=== PATIENT | female | born 1945 | race Caucasian/White ===

== ENCOUNTER 2017-09-21 01:14 | Inpatient (IN) | payer MEDICARE, OTHER ==
[~2017-09-21] VITALS: Ht 167.6 cm; Wt 119.0 kg
[2017-09-21] MEDS ORDERED: RAPID SEQUENCE KIT [RSI] 1 EACH KIT ONE ×2 (01:21)
[2017-09-21] MEDS ORDERED: SUCCINYLCHOLINE CHLORIDE 20 MG/ML 10 ML VIAL ONE (01:22)
[2017-09-21] MEDS ORDERED: LORazepam 2 MG/ML VIAL ONE (01:34)
[2017-09-21] MEDS ORDERED: SODIUM CHLORIDE 0.9% 1,000 ML IV ONE (01:45)
[2017-09-21] MEDS ORDERED: LORazepam 2 MG/ML VIAL IVP ONE ×3 (01:45→04:30)
[2017-09-21] MEDS ORDERED: FOSPHENYTOIN SODIUM 1,000 MGPE in SODIUM CHLORIDE 0.9% 100 ML IV ONE (02:00)
[2017-09-21 02:04] LABS: EOSINOPHILS # (AUTO) 0.01 K/uL (0.00-0.70); EOSINOPHILS % (AUTO) 0.08 % (1.0-6.0); HEMATOCRIT 38.7 % (36-46); HEMOGLOBIN 12.1 g/dL (12.0-16.0); LYMPHOCYTES # (AUTO) 0.8 K/uL (1.0-4.8); LYMPHOCYTES % (AUTO) 7.4 % (22.0-44.0); MEAN CORPUSCULAR HEMOGLOBIN 26.7 pg (26.0-34.0); MEAN CORPUSCULAR HGB CONC 31.4 G/dL (31.0-37.0); MEAN CORPUSCULAR VOLUME 85 fL (80-100); MONOCYTES # (AUTO) 0.1 K/uL (0.1-1.0); MONOCYTES % (AUTO) 0.8 % (2.0-9.0); NEUTROPHILS # (AUTO) 9.8 K/uL (1.8-7.7); PLATELET COUNT (AUTO) 325 K/uL (150-450); RED BLOOD CELL COUNT(AUTO) 4.54 MIL/uL (4.00-5.20); RED CELL DISTRIBUTION WIDTH 19.6 % (11.5-14.5); WHITE BLOOD COUNT (AUTO) 10.7 K/uL (4.5-11.0)
[2017-09-21 02:05] LABS: NEUTROPHILS % (AUTO) 91.7 % (40.0-70.0)
[2017-09-21 02:11] LABS: ANION GAP 13 mmol/L (8-16); CALCIUM, TOTAL 9.1 mg/dL (8.8-10.5); CARBON DIOXIDE 24 mmol/L (22-29); CHLORIDE 100 mmol/L (98-107); CREATININE 1.56 mg/dL (0.60-1.30); GLOMERULAR FILTR. RATE CALC 33 mL/min (>60); POTASSIUM 4.2 mmol/L (3.5-5.1); SODIUM SERUM 137 mmol/L (136-145); UREA NITROGEN, BLOOD 19 mg/dL (7-18)
[2017-09-21] MEDS ORDERED: DABI110C PO (02:14)
[2017-09-21] MEDS ORDERED: LISI-661 PO (02:14)
[2017-09-21] MEDS ORDERED: ACETAMINOPHEN 650 MG RECTAL SUPPOSITORY PR ONE ×2 (02:15)
[2017-09-21] MEDS ORDERED: FURO40TA5 PO (02:15)
[2017-09-21] MEDS ORDERED: METO-558 PO (02:16)
[2017-09-21] MEDS ORDERED: OMEP10CA41 PO (02:17)
[2017-09-21 02:18] LABS: AMMONIA 11 umol/L (11-32); TROPONIN I < 0.02 ng/mL (0.00-0.05)
[2017-09-21] MEDS ORDERED: SIMV-260 PO (02:18)
[2017-09-21 02:20] LABS: LACTIC ACID 6.4 mmol/L (0.4-2.0)
[2017-09-21] MEDS ORDERED: ROPI2 PO ×2 (02:21→02:24)
[2017-09-21] MEDS ORDERED: TIOT185 IH (02:24)
[2017-09-21 02:25] LABS: ALANINE AMINOTRANSFERASE 18 U/L (12-78); ALBUMIN 2.7 g/dL (3.4-5.0); ASPARTATE AMINOTRANSFERASE 28 U/L (15-37); BILIRUBIN,TOTAL 0.3 mg/dL (0.1-1.0); TOTAL PROTEIN, SERUM 7.4 g/dL (6.4-8.2)
[2017-09-21] MEDS ORDERED: DULO30CA2 PO (02:25)
[2017-09-21] MEDS ORDERED: SACC250C3 PO (02:26)
[2017-09-21 02:27] LABS: ACETAMINOPHEN < 2 mcg/mL (10-30)
[2017-09-21 02:40] LABS: APPEARANCE,URINE CLEAR (CLEAR); GLUCOSE, URINE (UA) NEGATIVE (NEGATIVE); KETONES,URINE NEGATIVE (NEGATIVE); LEUKOCYTE ESTERASE ,URINE NEGATIVE (NEGATIVE); OCCULT BLOOD,URINE TRACE (NEGATIVE); PROTEIN,URINE NEGATIVE (NEGATIVE)
[2017-09-21 02:49] LABS: SALICYLATE < 2.8 mg/dL (2.8-20.0)
[2017-09-21 02:53] LABS: CALCIUM OXALATE CRYSTALS,UR Rare /LPF (None Seen); WBC,URINE 0-2 /HPF (0-5)
[2017-09-21] MEDS ORDERED: CEFOTAXIME SODIUM 1 GM/VIAL IM ONE (05:00)
[2017-09-21] MEDS ORDERED: BISACODYL 10 MG RECTAL RECTAL SUPPOSITORY PR PRN (05:15)
[2017-09-21] MEDS ORDERED: VANCOMYCIN HCL 1.5 GM in DEXTROSE 5%-WATER 250 ML IV ONE (05:15)
[2017-09-21] MEDS ORDERED: IPRATROPIUM BROMIDE 0.5 MG/2.5 ML NEB SOLUTION NEB PRN (05:15)
[2017-09-21] MEDS ORDERED: ONDANSETRON HCL 4 MG/2 ML VIAL IVP PRN (05:15)
[2017-09-21] MEDS ORDERED: MAGNESIUM HYDROXIDE SUSPENSION 30 ML UDCUP PO PRN (05:15)
[2017-09-21] MEDS ORDERED: ZOLPIDEM TARTRATE 5 MG TABLET PO PRN (05:15)
[2017-09-21] MEDS ORDERED: ALBUTEROL SULFATE 2.5 MG/0.5 ML NEB SOLUTION NEB PRN (05:15)
[2017-09-21] MEDS ORDERED: CEFOTAXIME SODIUM 2 GM in DEXTROSE 5%-WATER 50 ML IV ONE (05:30)
[2017-09-21] MEDS: DEXTROSE 5%-0.45% SODIUM CHL 1,000 ML IV SCH ×2 (05:47→16:04)
[2017-09-21] MEDS ORDERED: ACETAMINOPHEN 500 MG/ISO-OSM 50 ML IV ONE (06:15)
[2017-09-21 06:16] LABS: BASOPHILS # (AUTO) 0.05 K/uL (0.00-0.20); BASOPHILS % (AUTO) 0.4 % (0.0-2.0); EOSINOPHILS % (AUTO) 0.03 % (1.0-6.0); HEMATOCRIT 35.2 % (36-46); HEMOGLOBIN 11.4 g/dL (12.0-16.0); LYMPHOCYTES # (AUTO) 0.4 K/uL (1.0-4.8); LYMPHOCYTES % (AUTO) 3.4 % (22.0-44.0); MEAN CORPUSCULAR HEMOGLOBIN 27.1 pg (26.0-34.0); MEAN CORPUSCULAR HGB CONC 32.3 G/dL (31.0-37.0); MEAN CORPUSCULAR VOLUME 84 fL (80-100); MONOCYTES # (AUTO) 0.1 K/uL (0.1-1.0); MONOCYTES % (AUTO) 0.8 % (2.0-9.0); NEUTROPHILS # (AUTO) 11.8 K/uL (1.8-7.7); PLATELET COUNT (AUTO) 297 K/uL (150-450); RED BLOOD CELL COUNT(AUTO) 4.19 MIL/uL (4.00-5.20); RED CELL DISTRIBUTION WIDTH 18.9 % (11.5-14.5); WHITE BLOOD COUNT (AUTO) 12.4 K/uL (4.5-11.0)
[2017-09-21 06:17] LABS: NEUTROPHILS % (AUTO) 95.4 % (40.0-70.0)
[2017-09-21 06:25] LABS: CALCIUM, TOTAL 8.6 mg/dL (8.8-10.5); CREATININE 1.34 mg/dL (0.60-1.30); POTASSIUM 4.4 mmol/L (3.5-5.1)
[2017-09-21 06:30] LABS: ALBUMIN 2.6 g/dL (3.4-5.0); BILIRUBIN,TOTAL 0.3 mg/dL (0.1-1.0); TOTAL PROTEIN, SERUM 7.3 g/dL (6.4-8.2)
[2017-09-21 07:05] LABS: RBC MORPHOLOGY COMMENT ABNORMAL RBC MORPH
[2017-09-21] MEDS ORDERED: LORazepam 2 MG/ML VIAL IVP PRN (07:45)
[2017-09-21] MEDS ORDERED: LevETIRAcetam 500 MG TABLET PO SCH (09:00)
[2017-09-21] MEDS ORDERED: FUROSEMIDE 40 MG TABLET PO SCH (09:00)
[2017-09-21 09:33] LABS: INR 1.4 (0.9-1.1); PROTHROMBIN TIME 14.5 SEC (9.4-11.6)
[2017-09-21 09:40] VITALS: BP 106/73
[2017-09-21] MEDS ORDERED: VANCOMYCIN HCL 1 GM/D5% WATER 200 ML IV ONE (11:00)
[2017-09-21 11:46] VITALS: BP 103/72
[2017-09-21] MEDS: DULoxetine HCL 30 MG CAPSULE PO SCH (11:47)
[2017-09-21] MEDS: PANTOPRAZOLE SODIUM 40 MG/VIAL IVP SCH (11:47)
[2017-09-21] MEDS: TIOTROPIUM BROMIDE 18 MCG/INH HANDIHALER [5] IH SCH (11:47)
[2017-09-21] MEDS: METOPROLOL SUCCINATE 100 MG ER TABLET PO SCH (11:48)
[2017-09-21] MEDS: SIMVASTATIN 20 MG TABLET PO SCH (11:48)
[2017-09-21] MEDS: LISINOPRIL 10 MG TABLET PO SCH (11:48)
[2017-09-21] MEDS: DABIGATRAN ETEXILATE MESYLATE 150 MG CAPSULE PO SCH ×2 (11:48→21:00)
[2017-09-21] MEDS: LevETIRAcetam 500 MG in DEXTROSE 5%-WATER 100 ML IV SCH (12:55)
[2017-09-21] MEDS ORDERED: DABI150 PO (13:55)
[2017-09-21] MEDS ORDERED: OMEP20 PO (13:55)
[2017-09-21] MEDS ORDERED: ACETAMINOPHEN 650 MG RECTAL SUPPOSITORY PR PRN (14:45)
[2017-09-21] MEDS: FUROSEMIDE 40 MG/4 ML VIAL IVP SCH ×2 (14:45→21:57)
[2017-09-21 16:14] VITALS: BP 99/46
[2017-09-21 16:51] VITALS: BP 111/69
[2017-09-21] MEDS ORDERED: VANCOMYCIN HCL 1 GM/D5% WATER 200 ML IV SCH (19:00)
[2017-09-21 20:00] VITALS: BP 114/71
[2017-09-22] MEDS: DEXTROSE 5%-0.45% SODIUM CHL 1,000 ML IV SCH ×2 (00:27→09:15)
[2017-09-22] MEDS: LevETIRAcetam 500 MG in DEXTROSE 5%-WATER 100 ML IV SCH ×2 (00:28→12:25)
[2017-09-22 00:37] VITALS: BP 96/61
[2017-09-22 07:35] LABS: BASOPHILS # (AUTO) 0.05 K/uL (0.00-0.20); BASOPHILS % (AUTO) 0.5 % (0.0-2.0); EOSINOPHILS % (AUTO) 1.04 % (1.0-6.0); HEMOGLOBIN 9.5 g/dL (12.0-16.0); LYMPHOCYTES # (AUTO) 1.6 K/uL (1.0-4.8); LYMPHOCYTES % (AUTO) 17.6 % (22.0-44.0); MEAN CORPUSCULAR HEMOGLOBIN 27.2 pg (26.0-34.0); MEAN CORPUSCULAR HGB CONC 31.7 G/dL (31.0-37.0); MEAN CORPUSCULAR VOLUME 86 fL (80-100); MONOCYTES # (AUTO) 0.6 K/uL (0.1-1.0); NEUTROPHILS % (AUTO) 74.9 % (40.0-70.0); PLATELET COUNT (AUTO) 247 K/uL (150-450); RED BLOOD CELL COUNT(AUTO) 3.49 MIL/uL (4.00-5.20); RED CELL DISTRIBUTION WIDTH 18.8 % (11.5-14.5); WHITE BLOOD COUNT (AUTO) 9.3 K/uL (4.5-11.0)
[2017-09-22 07:47] LABS: HEMOGLOBIN A1C 5.9 % (4.5-6.2)
[2017-09-22 07:50] LABS: INR 1.3 (0.9-1.1); PROTHROMBIN TIME 13.5 SEC (9.4-11.6)
[2017-09-22 08:03] VITALS: BP 97/62
[2017-09-22 08:18] LABS: ALBUMIN 2.2 g/dL (3.4-5.0); BILIRUBIN,TOTAL 0.5 mg/dL (0.1-1.0); CALCIUM, TOTAL 8.3 mg/dL (8.8-10.5); CREATININE 1.02 mg/dL (0.60-1.30); PHOSPHORUS 2.8 mg/dL (2.5-4.9); TOTAL PROTEIN, SERUM 5.8 g/dL (6.4-8.2)
[2017-09-22 09:00] LABS: POTASSIUM 2.9 mmol/L (3.5-5.1); RBC MORPHOLOGY COMMENT ABNORMAL RBC MORPH
[2017-09-22] MEDS: SIMVASTATIN 20 MG TABLET PO SCH (09:00)
[2017-09-22] MEDS: TIOTROPIUM BROMIDE 18 MCG/INH HANDIHALER [5] IH SCH (09:00)
[2017-09-22] MEDS: FUROSEMIDE 40 MG/4 ML VIAL IVP SCH (09:00)
[2017-09-22] MEDS: DULoxetine HCL 30 MG CAPSULE PO SCH (09:00)
[2017-09-22] MEDS: DABIGATRAN ETEXILATE MESYLATE 150 MG CAPSULE PO SCH ×2 (09:00→20:56)
[2017-09-22] MEDS: LISINOPRIL 10 MG TABLET PO SCH (09:00)
[2017-09-22] MEDS: METOPROLOL SUCCINATE 100 MG ER TABLET PO SCH (09:00)
[2017-09-22] MEDS: VANCOMYCIN HCL 1.5 GM in DEXTROSE 5%-WATER 250 ML IV SCH (09:15)
[2017-09-22] MEDS: PANTOPRAZOLE SODIUM 40 MG/VIAL IVP SCH (09:15)
[2017-09-22 11:43] VITALS: BP 130/54
[2017-09-22] MEDS: POTASSIUM CHL 10 MEQ/WATER 50 ML IV PRN ×4 (13:34→18:16)
[2017-09-22 15:44] VITALS: BP 133/54
[2017-09-22] MEDS: CefTRIAXone SODIUM 2 GM in DEXTROSE 5%-WATER 50 ML IV SCH (19:19)
[2017-09-22] MEDS: AMPICILLIN SODIUM 1 GM/NS 50 ML IV SCH ×2 (19:44→23:20)
[2017-09-22 20:21] VITALS: BP 91/55
[2017-09-22] MEDS: ACYCLOVIR 800 MG in DEXTROSE 5%-WATER 150 ML IV SCH (20:56)
[2017-09-23] VITALS (7 sets, daily range): BP systolic 111–131; BP diastolic 56–76
[2017-09-23] MEDS: LevETIRAcetam 500 MG in DEXTROSE 5%-WATER 100 ML IV SCH ×3 (00:24→23:48)
[2017-09-23] MEDS: AMPICILLIN SODIUM 1 GM/NS 50 ML IV SCH ×6 (02:37→22:07)
[2017-09-23] MEDS: ACYCLOVIR 800 MG in DEXTROSE 5%-WATER 150 ML IV SCH ×3 (03:58→18:27)
[2017-09-23] MEDS: CefTRIAXone SODIUM 2 GM in DEXTROSE 5%-WATER 50 ML IV SCH ×2 (06:14→17:10)
[2017-09-23 07:42] LABS: ANION GAP 6 mmol/L (8-16); CALCIUM, TOTAL 8.4 mg/dL (8.8-10.5); CARBON DIOXIDE 29 mmol/L (22-29); CHLORIDE 104 mmol/L (98-107); GLOMERULAR FILTR. RATE CALC > 60 mL/min (>60); POTASSIUM 3.2 mmol/L (3.5-5.1); SODIUM SERUM 139 mmol/L (136-145); UREA NITROGEN, BLOOD 9 mg/dL (7-18)
[2017-09-23 08:09] LABS: LACTIC ACID 0.9 mmol/L (0.4-2.0)
[2017-09-23] MEDS ORDERED: SODIUM CHLORIDE 0.9% 100 ML ONE (09:01)
[2017-09-23] MEDS: VANCOMYCIN HCL 1.5 GM in DEXTROSE 5%-WATER 250 ML IV SCH (09:04)
[2017-09-23] MEDS: TIOTROPIUM BROMIDE 18 MCG/INH HANDIHALER [5] IH SCH (09:09)
[2017-09-23] MEDS: PANTOPRAZOLE SODIUM 40 MG/VIAL IVP SCH (09:11)
[2017-09-23] MEDS: FUROSEMIDE 40 MG/4 ML VIAL IVP SCH (09:12)
[2017-09-23] MEDS: SIMVASTATIN 20 MG TABLET PO SCH (09:13)
[2017-09-23] MEDS: LISINOPRIL 5 MG TABLET PO SCH (09:13)
[2017-09-23] MEDS: DABIGATRAN ETEXILATE MESYLATE 150 MG CAPSULE PO SCH ×2 (09:14→22:07)
[2017-09-23] MEDS: METOPROLOL SUCCINATE 50 MG ER TABLET PO SCH (09:14)
[2017-09-23] MEDS: NYSTATIN 30 GM CREAM TP SCH ×2 (09:14→22:07)
[2017-09-23] MEDS: POTASSIUM CHLORIDE 20 MEQ ER TABLET PO PRN (10:45)
[2017-09-23] MEDS: ACETAMINOPHEN 325 MG TABLET PO PRN ×2 (11:46→23:48)
[2017-09-23] MEDS: NYSTATIN 500,000 UNITS/5 ML SUSPENSION UDCUP PO SCH ×2 (13:23→17:09)
[2017-09-24] VITALS (8 sets, daily range): BP systolic 107–132; BP diastolic 65–77
[2017-09-24] MEDS: NYSTATIN 500,000 UNITS/5 ML SUSPENSION UDCUP PO SCH ×5 (01:02→23:10)
[2017-09-24] MEDS: CefoTEtan DISOD 1 GM/DEXTROSE 50 ML IV SCH ×3 (01:02→22:11)
[2017-09-24 05:37] LABS: GLUCOSE,POINT OF CARE 110 MG/DL (70-110)
[2017-09-24 07:00] LABS: ANION GAP 8 mmol/L (8-16); CALCIUM, TOTAL 8.5 mg/dL (8.8-10.5); CARBON DIOXIDE 28 mmol/L (22-29); CHLORIDE 104 mmol/L (98-107); CREATININE 0.89 mg/dL (0.60-1.30); GLOMERULAR FILTR. RATE CALC > 60 mL/min (>60); POTASSIUM 3.4 mmol/L (3.5-5.1); SODIUM SERUM 140 mmol/L (136-145); UREA NITROGEN, BLOOD 10 mg/dL (7-18)
[2017-09-24 07:19] LABS: PROCALCITONIN (PCT) 0.14 ng/mL (<0.50)
[2017-09-24] MEDS: TIOTROPIUM BROMIDE 18 MCG/INH HANDIHALER [5] IH SCH (08:46)
[2017-09-24] MEDS: PANTOPRAZOLE SODIUM 40 MG/VIAL IVP SCH (08:46)
[2017-09-24] MEDS: FUROSEMIDE 40 MG/4 ML VIAL IVP SCH (08:48)
[2017-09-24] MEDS: NYSTATIN 30 GM CREAM TP SCH ×2 (08:49→20:26)
[2017-09-24] MEDS: METOPROLOL SUCCINATE 50 MG ER TABLET PO SCH (08:50)
[2017-09-24] MEDS: DABIGATRAN ETEXILATE MESYLATE 150 MG CAPSULE PO SCH ×2 (08:50→20:26)
[2017-09-24] MEDS: MetroNIDAZOLE 500 MG TABLET PO SCH ×3 (08:51→20:26)
[2017-09-24] MEDS: SIMVASTATIN 20 MG TABLET PO SCH (08:51)
[2017-09-24] MEDS: LISINOPRIL 5 MG TABLET PO SCH (08:51)
[2017-09-24] MEDS: POTASSIUM CHLORIDE 20 MEQ ER TABLET PO PRN (08:51)
[2017-09-24] MEDS: LevETIRAcetam 500 MG in DEXTROSE 5%-WATER 100 ML IV SCH ×2 (11:32→23:10)
[2017-09-24] MEDS ORDERED: VANCOMYCIN HCL 1.5 GM in DEXTROSE 5%-WATER 250 ML IV ONE (14:00)
[2017-09-24] MEDS ORDERED: SODIUM CHLORIDE 0.9% 250 ML IV ONE (14:00)
[2017-09-25 04:02] VITALS: BP 106/62
[2017-09-25] MEDS: NYSTATIN 500,000 UNITS/5 ML SUSPENSION UDCUP PO SCH ×4 (04:50→23:47)
[2017-09-25 06:45] LABS: BASOPHILS % (AUTO) 0.4 % (0.0-2.0); EOSINOPHILS % (AUTO) 2.4 % (1.0-6.0); HEMATOCRIT 32.4 % (36-46); HEMOGLOBIN 10.6 g/dL (12.0-16.0); LYMPHOCYTES # (AUTO) 1.1 K/uL (1.0-4.8); LYMPHOCYTES % (AUTO) 10.6 % (22.0-44.0); MEAN CORPUSCULAR HEMOGLOBIN 27.9 pg (26.0-34.0); MEAN CORPUSCULAR HGB CONC 32.8 G/dL (31.0-37.0); MEAN CORPUSCULAR VOLUME 85 fL (80-100); MONOCYTES # (AUTO) 0.6 K/uL (0.1-1.0); MONOCYTES % (AUTO) 6.2 % (2.0-9.0); NEUTROPHILS # (AUTO) 8.3 K/uL (1.8-7.7); NEUTROPHILS % (AUTO) 80.4 % (40.0-70.0); PLATELET COUNT (AUTO) 257 K/uL (150-450); RED BLOOD CELL COUNT(AUTO) 3.81 MIL/uL (4.00-5.20); RED CELL DISTRIBUTION WIDTH 18.6 % (11.5-14.5); WHITE BLOOD COUNT (AUTO) 10.4 K/uL (4.5-11.0)
[2017-09-25 06:58] LABS: CALCIUM, TOTAL 8.8 mg/dL (8.8-10.5); CREATININE 0.93 mg/dL (0.60-1.30); POTASSIUM 4.1 mmol/L (3.5-5.1)
[2017-09-25 08:12] VITALS: BP 126/70
[2017-09-25] MEDS: PANTOPRAZOLE SODIUM 40 MG/VIAL IVP SCH (08:27)
[2017-09-25] MEDS: FUROSEMIDE 40 MG/4 ML VIAL IVP SCH (08:28)
[2017-09-25] MEDS: DABIGATRAN ETEXILATE MESYLATE 150 MG CAPSULE PO SCH ×2 (08:28→21:24)
[2017-09-25] MEDS: LISINOPRIL 5 MG TABLET PO SCH (08:28)
[2017-09-25] MEDS: SIMVASTATIN 20 MG TABLET PO SCH (08:29)
[2017-09-25] MEDS: MetroNIDAZOLE 500 MG TABLET PO SCH ×3 (08:29→21:24)
[2017-09-25] MEDS: VANCOMYCIN HCL 1.5 GM in DEXTROSE 5%-WATER 250 ML IV SCH ×2 (08:29→21:24)
[2017-09-25] MEDS: METOPROLOL SUCCINATE 50 MG ER TABLET PO SCH (08:29)
[2017-09-25] MEDS: TIOTROPIUM BROMIDE 18 MCG/INH HANDIHALER [5] IH SCH (08:29)
[2017-09-25] MEDS: NYSTATIN 30 GM CREAM TP SCH ×2 (08:30→21:25)
[2017-09-25] MEDS: LevETIRAcetam 500 MG in DEXTROSE 5%-WATER 100 ML IV SCH ×2 (11:14→23:43)
[2017-09-25 11:23] VITALS: BP 113/61
[2017-09-25] MEDS: CefoTEtan DISOD 1 GM/DEXTROSE 50 ML IV SCH ×2 (12:12→23:59)
[2017-09-25 17:30] VITALS: BP 126/58
[2017-09-25 20:48] VITALS: BP 112/63
[2017-09-25 23:31] VITALS: BP 130/68
[2017-09-26] MEDS: ACETAMINOPHEN 325 MG TABLET PO PRN (03:25)
[2017-09-26 04:21] VITALS: BP 113/80
[2017-09-26] MEDS: NYSTATIN 500,000 UNITS/5 ML SUSPENSION UDCUP PO SCH ×4 (05:13→23:28)
[2017-09-26 06:59] LABS: CREATININE 1.01 mg/dL (0.60-1.30); POTASSIUM 3.9 mmol/L (3.5-5.1)
[2017-09-26 07:14] VITALS: BP 95/59
[2017-09-26] MEDS: TIOTROPIUM BROMIDE 18 MCG/INH HANDIHALER [5] IH SCH (08:44)
[2017-09-26] MEDS: VANCOMYCIN HCL 1.5 GM in DEXTROSE 5%-WATER 250 ML IV SCH ×2 (08:44→20:29)
[2017-09-26] MEDS: SIMVASTATIN 20 MG TABLET PO SCH (08:44)
[2017-09-26] MEDS: DABIGATRAN ETEXILATE MESYLATE 150 MG CAPSULE PO SCH ×2 (08:44→20:29)
[2017-09-26] MEDS: MetroNIDAZOLE 500 MG TABLET PO SCH ×3 (08:44→20:29)
[2017-09-26] MEDS: METOPROLOL SUCCINATE 50 MG ER TABLET PO SCH (08:45)
[2017-09-26] MEDS: FUROSEMIDE 40 MG/4 ML VIAL IVP SCH (08:45)
[2017-09-26] MEDS: PANTOPRAZOLE SODIUM 40 MG/VIAL IVP SCH (08:45)
[2017-09-26] MEDS: LISINOPRIL 5 MG TABLET PO SCH (08:49)
[2017-09-26] MEDS: NYSTATIN 30 GM CREAM TP SCH ×2 (08:49→20:30)
[2017-09-26] MEDS: LevETIRAcetam 500 MG in DEXTROSE 5%-WATER 100 ML IV SCH ×2 (11:32→22:53)
[2017-09-26 11:38] VITALS: BP 100/62
[2017-09-26] MEDS: CefoTEtan DISOD 1 GM/DEXTROSE 50 ML IV SCH ×2 (12:13→23:16)
[2017-09-26 15:52] VITALS: BP 104/82
[2017-09-26 19:45] VITALS: BP_SYST 124; BP_SYST 144; BP_DIAS 59; BP_DIAS 93
[2017-09-26 23:04] VITALS: BP 123/78
[2017-09-27] VITALS (8 sets, daily range): BP systolic 100–136; BP diastolic 63–81
[2017-09-27] MEDS: NYSTATIN 500,000 UNITS/5 ML SUSPENSION UDCUP PO SCH ×3 (04:59→18:10)
[2017-09-27 06:44] LABS: CREATININE 1.05 mg/dL (0.60-1.30); POTASSIUM 4.1 mmol/L (3.5-5.1)
[2017-09-27] MEDS: ACETAMINOPHEN 325 MG TABLET PO PRN ×2 (07:36→23:00)
[2017-09-27] MEDS ORDERED: DIGOXIN 250 MCG/ML 2 ML AMP IVP ONE (08:45)
[2017-09-27] MEDS: VANCOMYCIN HCL 1.5 GM in DEXTROSE 5%-WATER 250 ML IV SCH (09:39)
[2017-09-27] MEDS: FUROSEMIDE 40 MG/4 ML VIAL IVP SCH (09:57)
[2017-09-27] MEDS: MetroNIDAZOLE 500 MG TABLET PO SCH ×3 (09:57→20:17)
[2017-09-27] MEDS: DABIGATRAN ETEXILATE MESYLATE 150 MG CAPSULE PO SCH ×2 (09:57→20:17)
[2017-09-27] MEDS: PANTOPRAZOLE SODIUM 40 MG DR TABLET PO SCH (09:57)
[2017-09-27] MEDS: SIMVASTATIN 20 MG TABLET PO SCH (09:58)
[2017-09-27] MEDS: METOPROLOL SUCCINATE 25 MG ER TABLET PO SCH (09:58)
[2017-09-27] MEDS: NYSTATIN 30 GM CREAM TP SCH ×2 (09:59→20:22)
[2017-09-27] MEDS: LISINOPRIL 5 MG TABLET PO SCH (11:02)
[2017-09-27] MEDS: TIOTROPIUM BROMIDE 18 MCG/INH HANDIHALER [5] IH SCH (11:57)
[2017-09-27] MEDS: CefoTEtan DISOD 1 GM/DEXTROSE 50 ML IV SCH ×2 (12:03→22:59)
[2017-09-27] MEDS: LevETIRAcetam 500 MG in DEXTROSE 5%-WATER 100 ML IV SCH (12:03)
[2017-09-27] MEDS: VANCOMYCIN HCL 1.25 GM in DEXTROSE 5%-WATER 250 ML IV SCH (20:18)
[2017-09-28] MEDS: NYSTATIN 500,000 UNITS/5 ML SUSPENSION UDCUP PO SCH ×4 (00:23→16:24)
[2017-09-28] MEDS ORDERED: SODIUM CHLORIDE 0.9% 500 ML IV ONE (01:37)
[2017-09-28 04:38] VITALS: BP 127/75
[2017-09-28 07:08] LABS: BASOPHILS % (AUTO) 0.4 % (0.0-2.0); EOSINOPHILS % (AUTO) 6.7 % (1.0-6.0); HEMATOCRIT 34.7 % (36-46); HEMOGLOBIN 11.2 g/dL (12.0-16.0); LYMPHOCYTES # (AUTO) 1.4 K/uL (1.0-4.8); LYMPHOCYTES % (AUTO) 14.1 % (22.0-44.0); MEAN CORPUSCULAR HEMOGLOBIN 27.8 pg (26.0-34.0); MEAN CORPUSCULAR HGB CONC 32.4 G/dL (31.0-37.0); MEAN CORPUSCULAR VOLUME 86 fL (80-100); MONOCYTES # (AUTO) 0.6 K/uL (0.1-1.0); MONOCYTES % (AUTO) 6.5 % (2.0-9.0); NEUTROPHILS # (AUTO) 6.9 K/uL (1.8-7.7); NEUTROPHILS % (AUTO) 72.3 % (40.0-70.0); PLATELET COUNT (AUTO) 333 K/uL (150-450); RED BLOOD CELL COUNT(AUTO) 4.04 MIL/uL (4.00-5.20); RED CELL DISTRIBUTION WIDTH 18.8 % (11.5-14.5); WHITE BLOOD COUNT (AUTO) 9.6 K/uL (4.5-11.0)
[2017-09-28 07:40] LABS: CALCIUM, TOTAL 9.1 mg/dL (8.8-10.5); CREATININE 1.04 mg/dL (0.60-1.30); POTASSIUM 3.9 mmol/L (3.5-5.1)
[2017-09-28 07:43] VITALS: BP 124/73
[2017-09-28] MEDS: FUROSEMIDE 40 MG/4 ML VIAL IVP SCH (07:53)
[2017-09-28] MEDS: TIOTROPIUM BROMIDE 18 MCG/INH HANDIHALER [5] IH SCH (07:53)
[2017-09-28] MEDS: PANTOPRAZOLE SODIUM 40 MG DR TABLET PO SCH (07:54)
[2017-09-28] MEDS: DIGOXIN 125 MCG TABLET PO SCH (07:54)
[2017-09-28] MEDS: MetroNIDAZOLE 500 MG TABLET PO SCH ×3 (07:54→20:08)
[2017-09-28] MEDS: DABIGATRAN ETEXILATE MESYLATE 150 MG CAPSULE PO SCH ×2 (07:54→20:08)
[2017-09-28] MEDS: METOPROLOL SUCCINATE 25 MG ER TABLET PO SCH (07:55)
[2017-09-28] MEDS: SIMVASTATIN 20 MG TABLET PO SCH (07:55)
[2017-09-28] MEDS: NYSTATIN 30 GM CREAM TP SCH ×2 (07:56→20:08)
[2017-09-28] MEDS: VANCOMYCIN HCL 1.25 GM in DEXTROSE 5%-WATER 250 ML IV SCH ×2 (08:07→20:08)
[2017-09-28] MEDS: LevETIRAcetam 500 MG in DEXTROSE 5%-WATER 100 ML IV SCH ×4 (10:35→23:22)
[2017-09-28] MEDS: CefoTEtan DISOD 1 GM/DEXTROSE 50 ML IV SCH ×2 (10:35→22:34)
[2017-09-28 10:55] LABS: RBC MORPHOLOGY COMMENT ABNORMAL RBC MORPH
[2017-09-28] MEDS: ACETAMINOPHEN 325 MG TABLET PO PRN (11:00)
[2017-09-28] MEDS: LISINOPRIL 5 MG TABLET PO SCH (11:25)
[2017-09-28 11:55] VITALS: BP 116/63
[2017-09-28 15:25] VITALS: BP 113/60
[2017-09-28 19:31] VITALS: BP 98/57
[2017-09-28 23:49] VITALS: BP 110/72
[2017-09-29] MEDS: NYSTATIN 500,000 UNITS/5 ML SUSPENSION UDCUP PO SCH ×4 (00:10→17:46)
[2017-09-29 04:52] VITALS: BP 117/65
[2017-09-29 06:38] LABS: CREATININE 1.02 mg/dL (0.60-1.30)
[2017-09-29 07:16] VITALS: BP 90/47
[2017-09-29] MEDS: FUROSEMIDE 40 MG/4 ML VIAL IVP SCH (08:33)
[2017-09-29] MEDS: TIOTROPIUM BROMIDE 18 MCG/INH HANDIHALER [5] IH SCH (08:33)
[2017-09-29] MEDS: DIGOXIN 125 MCG TABLET PO SCH (08:34)
[2017-09-29] MEDS: SIMVASTATIN 20 MG TABLET PO SCH (08:34)
[2017-09-29] MEDS: METOPROLOL SUCCINATE 25 MG ER TABLET PO SCH (08:34)
[2017-09-29] MEDS: PANTOPRAZOLE SODIUM 40 MG DR TABLET PO SCH (08:34)
[2017-09-29] MEDS: MetroNIDAZOLE 500 MG TABLET PO SCH ×3 (08:35→21:07)
[2017-09-29] MEDS: DABIGATRAN ETEXILATE MESYLATE 150 MG CAPSULE PO SCH ×2 (08:35→21:08)
[2017-09-29] MEDS: LISINOPRIL 5 MG TABLET PO SCH (08:35)
[2017-09-29] MEDS: NYSTATIN 30 GM CREAM TP SCH ×2 (08:37→21:07)
[2017-09-29] MEDS: ACETAMINOPHEN 325 MG TABLET PO PRN (10:37)
[2017-09-29] MEDS: CefoTEtan DISOD 1 GM/DEXTROSE 50 ML IV SCH ×2 (11:04→23:53)
[2017-09-29 11:10] VITALS: BP 95/61
[2017-09-29] MEDS: LevETIRAcetam 500 MG in DEXTROSE 5%-WATER 100 ML IV SCH ×2 (11:39→23:53)
[2017-09-29] MEDS ORDERED: AMIODARONE HCL 150 MG in DEXTROSE 5%-WATER 97 ML IV ONE (13:20)
[2017-09-29] MEDS ORDERED: AMIODARONE HCL 360 MG in DEXTROSE 5%-WATER 242.8 ML IV ONE (13:30)
[2017-09-29 14:30] VITALS: BP 139/89
[2017-09-29] MEDS ORDERED: MetroNIDAZOLE 500 MG TABLET ONE (15:30)
[2017-09-29 16:00] VITALS: BP 112/74
[2017-09-29] MEDS: DIGOXIN 250 MCG/ML 2 ML AMP IVP SCH (17:46)
[2017-09-29] MEDS ORDERED: AMIODARONE HCL 540 MG in DEXTROSE 5%-WATER 239.2 ML IV ONE (19:30)
[2017-09-29 20:00] VITALS: BP 122/68
[2017-09-30] VITALS (8 sets, daily range): BP systolic 97–132; BP diastolic 55–74
[2017-09-30] MEDS: NYSTATIN 500,000 UNITS/5 ML SUSPENSION UDCUP PO SCH ×5 (00:02→23:23)
[2017-09-30] MEDS: DIGOXIN 250 MCG/ML 2 ML AMP IVP SCH ×3 (00:03→12:46)
[2017-09-30] MEDS ORDERED: SODIUM CHLORIDE 0.9% 500 ML IV ONE (00:18)
[2017-09-30] MEDS: TIOTROPIUM BROMIDE 18 MCG/INH HANDIHALER [5] IH SCH (08:43)
[2017-09-30] MEDS: DABIGATRAN ETEXILATE MESYLATE 150 MG CAPSULE PO SCH ×2 (08:46→20:42)
[2017-09-30] MEDS: FUROSEMIDE 40 MG/4 ML VIAL IVP SCH (08:46)
[2017-09-30] MEDS: DIGOXIN 125 MCG TABLET PO SCH (08:47)
[2017-09-30] MEDS: MetroNIDAZOLE 500 MG TABLET PO SCH ×3 (08:47→20:40)
[2017-09-30] MEDS: SIMVASTATIN 20 MG TABLET PO SCH (08:47)
[2017-09-30] MEDS: PANTOPRAZOLE SODIUM 40 MG DR TABLET PO SCH (08:47)
[2017-09-30] MEDS: LISINOPRIL 5 MG TABLET PO SCH (08:48)
[2017-09-30] MEDS: METOPROLOL SUCCINATE 25 MG ER TABLET PO SCH (08:48)
[2017-09-30] MEDS: NYSTATIN 30 GM CREAM TP SCH ×2 (08:50→20:41)
[2017-09-30] MEDS: CefoTEtan DISOD 1 GM/DEXTROSE 50 ML IV SCH (11:14)
[2017-09-30] MEDS: LevETIRAcetam 500 MG in DEXTROSE 5%-WATER 100 ML IV SCH ×2 (11:14→23:23)
[2017-09-30] MEDS ORDERED: AMIODARONE HCL 750 MG in DEXTROSE 5%-WATER 485 ML IV SCH (13:30)
[2017-09-30] MEDS: AMIODARONE HCL 200 MG TABLET PO SCH (20:40)
[2017-10-01 00:52] LABS: GLUCOSE,POINT OF CARE 112 MG/DL (70-110)
[2017-10-01 04:13] VITALS: BP 121/68
[2017-10-01] MEDS: NYSTATIN 500,000 UNITS/5 ML SUSPENSION UDCUP PO SCH ×4 (06:22→23:10)
[2017-10-01 07:21] VITALS: BP 118/63
[2017-10-01] MEDS: TIOTROPIUM BROMIDE 18 MCG/INH HANDIHALER [5] IH SCH (09:02)
[2017-10-01] MEDS: SIMVASTATIN 20 MG TABLET PO SCH (09:03)
[2017-10-01] MEDS: MetroNIDAZOLE 500 MG TABLET PO SCH ×3 (09:03→20:03)
[2017-10-01] MEDS: FUROSEMIDE 40 MG/4 ML VIAL IVP SCH (09:04)
[2017-10-01] MEDS: AMIODARONE HCL 200 MG TABLET PO SCH ×2 (09:04→20:04)
[2017-10-01] MEDS: DIGOXIN 125 MCG TABLET PO SCH (09:04)
[2017-10-01] MEDS: DABIGATRAN ETEXILATE MESYLATE 150 MG CAPSULE PO SCH ×2 (09:04→20:03)
[2017-10-01] MEDS: PANTOPRAZOLE SODIUM 40 MG DR TABLET PO SCH (09:05)
[2017-10-01] MEDS: NYSTATIN 30 GM CREAM TP SCH ×2 (09:05→20:14)
[2017-10-01] MEDS: LISINOPRIL 5 MG TABLET PO SCH (09:05)
[2017-10-01 11:32] VITALS: BP 123/69
[2017-10-01] MEDS: LevETIRAcetam 500 MG in DEXTROSE 5%-WATER 100 ML IV SCH ×2 (11:43→23:10)
[2017-10-01] MEDS: METOPROLOL SUCCINATE 25 MG ER TABLET PO SCH (11:43)
[2017-10-01 15:58] VITALS: BP 119/58
[2017-10-01 20:16] VITALS: BP 123/69
[2017-10-02 00:06] VITALS: BP 110/59
[2017-10-02 05:09] VITALS: BP 128/61
[2017-10-02] MEDS: NYSTATIN 500,000 UNITS/5 ML SUSPENSION UDCUP PO SCH (05:44)
[2017-10-02 07:46] VITALS: BP 119/64
[2017-10-02] MEDS: TIOTROPIUM BROMIDE 18 MCG/INH HANDIHALER [5] IH SCH (08:47)
[2017-10-02] MEDS: MetroNIDAZOLE 500 MG TABLET PO SCH (08:47)
[2017-10-02] MEDS: DABIGATRAN ETEXILATE MESYLATE 150 MG CAPSULE PO SCH (08:47)
[2017-10-02] MEDS: DIGOXIN 125 MCG TABLET PO SCH (08:48)
[2017-10-02] MEDS: AMIODARONE HCL 200 MG TABLET PO SCH (08:48)
[2017-10-02] MEDS: SIMVASTATIN 20 MG TABLET PO SCH (08:48)
[2017-10-02] MEDS: FUROSEMIDE 40 MG/4 ML VIAL IVP SCH (08:48)
[2017-10-02] MEDS: PANTOPRAZOLE SODIUM 40 MG DR TABLET PO SCH (08:48)
[2017-10-02] MEDS: NYSTATIN 30 GM CREAM TP SCH (08:49)
[2017-10-02] MEDS: LISINOPRIL 5 MG TABLET PO SCH (10:22)
[2017-10-02] MEDS: METOPROLOL SUCCINATE 25 MG ER TABLET PO SCH (10:22)
[2017-10-02] MEDS: LevETIRAcetam 500 MG in DEXTROSE 5%-WATER 100 ML IV SCH (10:26)
== END 2017-10-02 10:50 | DRG 871 ==
LOC: EMS 01:15 → 5S 05:29 → ICU 09-29 15:25 → 5S 09-30 16:05
PROVIDERS: ADMIT Internal Medicine; ATTEND Internal Medicine
PROC: 00JU3ZZ Inspection of Spinal Canal, Percutaneous Approach (ICD-10-PCS; principal; 2017-09-21)
PROC: 5A09357 Assistance with Respiratory Ventilation, Less than 24 Consecutive Hours, Continuous Positive Airway Pressure (ICD-10-PCS; 2017-09-21)
PROC: 5A09357 Assistance with Respiratory Ventilation, Less than 24 Consecutive Hours, Continuous Positive Airway Pressure (ICD-10-PCS; 2017-09-22)
DX: A41.2 Sepsis due to unspecified staphylococcus (principal); G92 Toxic encephalopathy; J96.91 Respiratory failure, unspecified with hypoxia; N17.9 Acute kidney failure, unspecified; A04.72 Enterocolitis due to Clostridium difficile, not specified as recurrent; G40.401 Other generalized epilepsy and epileptic syndromes, not intractable, with status epilepticus; I50.42 Chronic combined systolic (congestive) and diastolic (congestive) heart failure; I11.0 Hypertensive heart disease with heart failure; I48.2 Chronic atrial fibrillation; E78.5 Hyperlipidemia, unspecified; E66.01 Morbid (severe) obesity due to excess calories; Z68.41 Body mass index [BMI] 40.0-44.9, adult; N39.0 Urinary tract infection, site not specified; Z66 Do not resuscitate; J44.9 Chronic obstructive pulmonary disease, unspecified; K21.9 Gastro-esophageal reflux disease without esophagitis; F03.90 Unspecified dementia, unspecified severity, without behavioral disturbance, psychotic disturbance, mood disturbance, and anxiety; G25.81 Restless legs syndrome; E87.6 Hypokalemia; G47.33 Obstructive sleep apnea (adult) (pediatric); Z16.24 Resistance to multiple antibiotics; Z87.440 Personal history of urinary (tract) infections; Z87.891 Personal history of nicotine dependence; Z88.5 Allergy status to narcotic agent; Z88.0 Allergy status to penicillin; Z79.899 Other long term (current) drug therapy
CPT/HCPCS: 51702; 62270; 70450; 70551; 82948; 82962; 83036; 83605; 83735; 84100; 84132; 84145; 87040; 87081; 87324; 87449; 92610; 93005; 94660; 96361; 96365; 96366; 96368; 96375; 96376; 97162; 97530; 99285; C9113; G0480; G0481; J0131; J0133; J0282; J0290; J0330; J0696; J0698; J0712; J1160; J1940; J2060; J2405; J3370; J3480; J3490; J7030; J7040; J7050; J7060; Q2009